=== PATIENT | female | born 1940 | race Caucasian/White ===

== ENCOUNTER 2019-07-25 12:55 | Inpatient (IN) | payer MEDICARE ==
[2019-07-25 15:30] LABS: ABSOLUTE EOSINOPHILS # (AUTO) 0.1 10^3/uL (0.0-0.6); ABSOLUTE LYMPHOCYTES (AUTO) 0.9 10^3/uL (0.5-4.7); ABSOLUTE MONOCYTES (AUTO) 0.9 10^3/uL (0.1-1.4); BASOPHILS % (AUTO) 0.4 % (0-2); EOSINOPHILS % (AUTO) 1.2 % (0-6); HEMATOCRIT 41.3 % (36.0-47.0); HEMOGLOBIN 14.8 g/dL (12.0-15.5); LYMPHOCYTES % (AUTO) 9.9 % (13-45); MEAN CORPUSCULAR HEMOGLOBIN 31.3 pg (27.0-33.4); MEAN CORPUSCULAR HGB CONC 35.8 g/dL (32.0-36.0); MEAN CORPUSCULAR VOLUME 87 fl (80-97); MONOCYTES % (AUTO) 10.2 % (3-13); PLATELET COUNT 279 10^3/uL (150-450); RED BLOOD COUNT 4.73 10^6/uL (3.72-5.28); RED CELL DISTRIBUTION WIDTH 13.9 % (11.5-14.0); SEGMENTED NEUTROPHILS % (AUTO) 78.3 % (42-78); TOTAL CELLS COUNTED % (AUTO) 100 %
[2019-07-25 15:40] LABS: ALBUMIN 4.4 g/dL (3.5-5.0); ALKALINE PHOSPHATASE 87 U/L (38-126); ANION GAP 12 (5-19); ASPARTATE AMINO TRANSFERASE 32 U/L (14-36); BILIRUBIN,DIRECT 0.3 mg/dL (0.0-0.4); BILIRUBIN,TOTAL 0.8 mg/dL (0.2-1.3); BLOOD UREA NITROGEN 12 mg/dL (7-20); CALCIUM 10.2 mg/dL (8.4-10.2); CARBON DIOXIDE 28 mmol/L (22-30); CHLORIDE 87 mmol/L (98-107); GLUCOSE 108 mg/dL (75-110); POTASSIUM 4.2 mmol/L (3.6-5.0); TOTAL PROTEIN 7.8 g/dL (6.3-8.2)
[2019-07-25 15:44] LABS: APPEARANCE,URINE CLEAR; BILIRUBIN,URINE NEGATIVE (NEGATIVE); COLOR,URINE YELLOW; GLUCOSE, URINE NEGATIVE (NEGATIVE); KETONES,URINE NEGATIVE (NEGATIVE); LEUKOCYTE ESTERASE,URINE NEGATIVE (NEGATIVE); NITRITE,URINE NEGATIVE (NEGATIVE); PROTEIN,URINE NEGATIVE (NEGATIVE); URINE SPECIFIC GRAVITY 1.006; UROBILINOGEN,URINE NEGATIVE mg/dL (<2.0)
--- NOTE | 2019-07-25 17:30 | RADIOLOGY REPORT (SQ) ---
EXAM DESCRIPTION: CT HEAD WITHOUT COMPLETED DATE/TIME: 07/25/2019 4:58 pm REASON FOR STUDY: headache, blurry vision COMPARISON: 2008. TECHNIQUE: Axial images acquired through the brain without intravenous contrast. Images reviewed wi th bone, brain and subdural windows. Additional sagittal and coronal reconstructions were generated. Images stored on PACS. All CT scanners at this facility use dose modulation, iterative reconstruction, and/or weight based d osing when appropriate to reduce radiation dose to as low as reasonably achievable (ALARA). [facility]: Dose Right [facility]: CareDose [facility]: Dose Right [facility]: Teradose 4D [facility]: Smart Technologies RADIATION DOSE: CT Rad equipment meets quality standard of care and radiation dose reduction techniq ues were employed. CTDIvol: 23.9 mGy. DLP: 457 mGy-cm. mGy. LIMITATIONS: Dense artifact related to hyperostosis frontalis. FINDINGS: VENTRICLES: Cavum septum pellucidum. Mild ventricular prominence consistent with atrophy. No intraventricular hemorrhage or gross mass. CEREBRUM: No masses. No hemorrhage. No midline shift. No evidence for acute infarction. Mild small vessel changes are noted, patchy white matter low density areas which are most conspicuous along the left occipital region. CEREBELLUM: No masses. No hemorrhage. No alteration of density. No evidence for acute infarction. EXTRAAXIAL SPACES: No fluid collections. No masses. ORBITS AND GLOBE: No intra- or extraconal masses. Normal contour of globe without masses. CALVARIUM: No fracture. PARANASAL SINUSES: No fluid or mucosal thickening. SOFT TISSUES: No mass or hematoma. OTHER: No other significant finding. IMPRESSION: 1. Relatively chronic appearing changes as above. Since 2008, low density has developed in the left occipital region, likely related to prior infarct. If there is concern for acute CVA, MRI with diffu garrett-weighted imaging would be appropriate. EVIDENCE OF ACUTE STROKE: NO. COMMENT: Quality ID # [id number]: Final reports with documentation of one or more dose reduction techniques (e.g., Automated exposure control, adjustment of the mA and/or kV according to patient size, use of iterative reconstruction technique) TECHNICAL DOCUMENTATION: JOB ID: [id number] 2010 [facility]- All Rights Reserved Reading location - IP/workstation name: [email or web address]
[2019-07-25] MEDS ORDERED: ACETAMINOPHEN 325 MG TABLET PO ONE (17:32)
--- NOTE | 2019-07-25 17:39 | ER Document Report ---
ED General - General Chief Complaint: Blurred Vision Stated Complaint: HEADACHE/DIZZINESS Time Seen by Provider: 07/25/19 16:31 Mode of Arrival: Ambulatory Information source: Patient, Friend Notes: Patient is an 79-year-old female presenting to the emergency department chief complaint of nausea and vomiting x2 yesterday generalized weakness for several days and blurred vision for the past day or 2. Patient states overall it is been going on for about 3 weeks however is worse today. Patient reports having 2 falls over the past month and a half but never has been seen for them. Patient denies travel history. Patient denies any sick contacts or obvious bad food exposure. Patient does report loss of her 6 weeks ago. TRAVEL OUTSIDE OF THE [place] IN LAST 30 DAYS: No - HPI Onset: Other Onset/Duration: Gradual, Persistent, Worse Quality of pain: Achy Severity: Mild Pain Level: 1 Associated symptoms: Nausea, Vomiting, Slow to respond, Weakness Exacerbated by: Movement, Walking Relieved by: Denies Similar symptoms previously: Yes Recently seen / treated by doctor: Yes - Related Data Allergies/Adverse Reactions: No Known Allergies Allergy (Verified 07/25/19 13:32) Home Medications: Metropolol, synthroid Past Medical History - General Information source: Patient, Friend - Social History Smoking Status: Never Smoker Chew tobacco use (# tins/day): No Frequency of alcohol use: None Drug Abuse: None Lives with: Alone Family History: Reviewed & Not Pertinent Patient has suicidal ideation: No Patient has homicidal ideation: No - Past Medical History Cardiac Medical History: Reports: Hx Hypertension - ATENOLOL Denies: Hx Heart Attack Pulmonary Medical History: Denies: Hx Asthma Neurological Medical History: Denies: Hx Cerebrovascular Accident, Hx Seizures GI Medical History: Denies: Hx Hepatitis, Hx Hiatal Hernia, Hx Ulcer Infectious Medical History: Denies: Hx Hepatitis Past Surgical History: Reports: Hx Hysterectomy, Hx Mastectomy - DOUBLE. Denies: Hx Open Heart Surgery, Hx Pacemaker Review of Systems - Review of Systems Notes: REVIEW OF SYSTEMS: CONSTITUTIONAL : Per HPI EENT: Denies ear, throat, or mouth pain or symptoms. Denies nasal or sinus congestion. However does report blurred vision and mild headache CARDIOVASCULAR: Denies chest pain. RESPIRATORY: Denies cough, cold, or chest congestion. Denies shortness of breath, difficulty breathing, or wheezing. GASTROINTESTINAL: Denies abdominal pain. Denies nausea, vomiting, or diarrhea. Denies constipation. GENITOURINARY: Denies difficulty urinating, painful urination, burning, frequency, or blood in urine. MUSCULOSKELETAL: Denies neck or back pain or joint pain or swelling. But does report generalized weakness SKIN: Denies rash or skin lesions. HEMATOLOGIC : Denies easy bruising or bleeding. NEUROLOGICAL: Denies altered mental status or loss of consciousness. Denies headache. Denies weakness or paralysis or loss of use of either side. Denies problems with gait or speech. Denies sensory or motor loss. PSYCHIATRIC: Denies suicidal or homicidal ideations 10 Systems are negative unless otherwise specified above Physical Exam - Vital signs Vitals: Temp Pulse Resp BP Pulse Ox 97.8 F 81 17 151/70 H 98 07/25/19 13:33 07/25/19 13:33 07/25/19 13:33 07/25/19 13:33 07/25/19 13:33 - Notes Notes: PHYSICAL EXAMINATION: GENERAL: Well-appearing, well-nourished and in no acute distress. HEAD: Atraumatic, normocephalic. EYES: Pupils equal round and reactive to light, extraocular movements intact, sclera anicteric, conjunctiva are normal. ENT: nares patent, oropharynx clear without exudates. Dry mucous membranes. NECK: Normal range of motion, supple without lymphadenopathy, no appreciable JVD LUNGS: Lungs clear to auscultation bilaterally and equal. No wheezes rales or rhonchi. HEART: Regular rate and rhythm without murmurs ABDOMEN: Soft, nontender, normal bowel sounds. No guarding, no rebound. No masses appreciated. EXTREMITIES: Active full range of motion, no pitting or edema. No cyanosis. 2+ pulses x4 NEUROLOGICAL: Patient answers questions appropriately follows commands appropriately does report blurred vision. Patient does report a headache but otherwise Daria Coma Scale of 15 patient is alert and oriented x3 cranial nerves II to XII are otherwise intact. SKIN: Warm, Dry, and intact. Normal turgor, no rashes or lesions noted. Course - Re-evaluation Re-evalutation: 07/25/19 17:42 After review of the patient's laboratory and radiologic studies has become aware that the patient is hyponatremic which may be explaining many of the patient's symptoms. I did discuss with the patient the need for admission because of her hyponatremia. Patient is agreeable with same. Patient is given a gram of Tylenol p.o. for her headache. Portable chest x-ray and EKG will be obtained as part of the admission process. I spoke with the hospitalist who is agreeable with admission. - Vital Signs Vital signs: Temp Pulse Resp BP Pulse Ox 97.8 F 78 21 H 170/83 H 100 07/25/19 13:33 07/25/19 16:00 07/25/19 17:00 07/25/19 16:31 07/25/19 16:00 - Laboratory Result Diagrams: 07/25/19 13:30 07/25/19 13:30 Laboratory results interpreted by me: 07/25/19 07/25/19 07/25/19 13:30 13:30 14:15 Lymph % (Auto) 9.9 L Seg Neutrophils % 78.3 H Sodium 126.5 L Chloride 87 L Urine Ascorbic Acid 20 H - Diagnostic Test Radiology reviewed: Reports reviewed - EKG Interpretation by Me Additional EKG results interpreted by me: 07/25/19 20:12 EKG demonstrates sinus rhythm 59 bpm there is borderline LVH there is a left a xis deviation however there is no ST elevation no ectopy and there is no old EKG for comparison. Discharge - Discharge Clinical Impression: Hyponatremia, Hypokalemia, Dizziness, Blurred vision Condition: Stable Disposition: ADMITTED OBSERVATION Admitting Provider: Albino (Hospitalist) Unit Admitted: Telemetry
--- NOTE | 2019-07-25 18:19 | RADIOLOGY REPORT (SQ) ---
EXAM DESCRIPTION: CHEST SINGLE VIEW COMPLETED DATE/TIME: 07/25/2019 5:56 pm REASON FOR STUDY: weak COMPARISON: 2008. NUMBER OF VIEWS: One view. TECHNIQUE: Single frontal radiographic view of the chest acquired. LIMITATIONS: None. FINDINGS: LUNGS AND PLEURA: No opacities, masses or pneumothorax. No pleural effusion. MEDIASTINUM AND HILAR STRUCTURES: Stable contours. HEART AND VASCULAR STRUCTURES: Mild cardiomegaly. No overt congestive failure. BONES: Osteopenic. HARDWARE: None in the chest. OTHER: No other significant finding. IMPRESSION: No acute cardiopulmonary disease. TECHNICAL DOCUMENTATION: JOB ID: [id number] 2010 [employer]- All Rights Reserved Reading location - IP/workstation name: [email or web address]
[2019-07-25] MEDS ORDERED: ACETAMINOPHEN 325 MG TABLET PO PRN (19:59)
[2019-07-25] MEDS ORDERED: MAG HYDROX/AL HYDROX/SIMETH SUSP 30 ML UDCUP PO PRN (19:59)
[2019-07-25] MEDS ORDERED: ONDANSETRON 4 MG TAB.RAPDIS PO PRN (19:59)
[2019-07-25] MEDS ORDERED: NORMAL SALINE 1000 ML 1,000 ML IV PRN (19:59)
[2019-07-25] MEDS ORDERED: MAGNESIUM HYDROXIDE SUSP 30 ML UDCUP PO PRN (19:59)
--- NOTE | 2019-07-25 19:59 | PDOC H&P ---
History of Present Illness Admission Date/PCP: 07/25/19 17:54 Patient complains of: Multiple falls, dizzy, blurred vision and hyponatremic History of Present Illness: AMBROCIO AMBROSE is a 79 year old female whose approximately 2 months ago. She states that she experienced a fall approximately 6 weeks ago. She hit the toilet. Her left ribs were sore. She states that her vision gets blurry since that fall. She was able to crawl back to bed. They did see her at [facility] and performed x-rays but according to the patient there were no fractures. Approximately 2 weeks after that she fell again. She denies hitting her head. Today she [facility] where she developed blurry vision and nearly passed out. EMS was called. They brought her to the emergency department. Her head CT scan showed microvascular changes but no acute stroke. She does have a history of several strokes in the past. Her blood pressure was elevated. Maximum systolic pressure was 165. Diastolic pressures were normal. Her CBC was normal. Her serum sodium was 126. She was referred to the hospitalist service for admission. Past Medical History Cardiac Medical History: Reports: Hypertension - ATENOLOL Denies: Myocardial Infarction Pulmonary Medical History: Denies: Asthma EENT Medical History: Reports: Cataracts, Eyes - Glaucoma Neurological Medical History: Denies: Seizures Endocrine Medical History: Reports: Hypothyroidism Denies: Diabetes Mellitus Type 2 Renal/ Medical History: Denies: Chronic Kidney Disease Malignancy Medical History: Reports: Breast Cancer GI Medical History: Denies: Hepatitis, Hiatal Hernia Skin Medical History: Denies: Eczema, Psoriasis Psychiatric Medical History: Denies: Alcohol Dependency, Substance Abuse, Tobacco Dependency Hematology: Denies: Anemia, Sickle Cell Disease Infectious Medical History: Reports: None Past Surgical History Past Surgical History: Reports: Herniorrhaphy - Incisional hernia at the site of the tissue harvest for the breast reconstr, Hysterectomy, Mastectomy - DOUBLE with subsequent breast reconstruction, Other - Cataracts Denies: Pacemaker Social History Information Source: Patient, [facility] Records Lives with: Alone - She is a Smoking Status: Never Smoker Electronic Cigarette use?: No Frequency of Alcohol Use: None Hx Recreational Drug Use: No Hx Prescription Drug Abuse: No Past Social History Note: approximately 2 months ago - Advance Directive Resuscitation Status: Do Not Resuscitate Surrogate healthcare decision maker:: When discussed she states that she has no family locally. I believe she reports a sister in [place] and a stepdaughter in [place]. She does not have a living will. Family History Family History: Malignancy Parental Family History Reviewed: Yes Children Family History Reviewed: NA Sibling(s) Family History Reviewed.: Yes Medication/Allergy Home Medications: Omeprazole 20 mg PO DAILY 10/05/12 Aspirin [Ecotrin 81 mg EC Tablet] 81 mg PO DAILY 07/25/19 Carboxymethylcellulose Sodium [Refresh Tears] 1 drop OU Q4 07/25/19 Levothyroxine Sodium [Synthroid 0.112 mg Tablet] 0.112 mg PO Q6AM 07/25/19 Metoprolol Succinate [Toprol Xl 50 mg Tab.sr] 50 mg PO DAILY 07/25/19 Triamterene/Hydrochlorothiazid [Triamterene-Hctz 37.5-25 mg Tb] 1 tab PO DAILY 07/25/19 Allergies/Adverse Reactions: No Known Allergies Allergy (Verified 07/25/19 13:32) Review of Systems All systems: reviewed and no additional remarkable complaints except as stated Constitutional: PRESENT: anorexia, fatigue, headache(s) Eyes: PRESENT: visual disturbances - Intermittent blurry vision Nose, Mouth, and Throat: PRESENT: headache(s) Neurological: PRESENT: abnormal speech - Slightly dysarthric today. Could be just fatigue., frequent falls Psychiatric: PRESENT: depression, other - Still with slight residual right-sided weakness from previous strokes Physical Exam Vital Signs: Temp Pulse Resp BP Pulse Ox 97.8 F 78 21 H 170/83 H 100 07/25/19 13:33 07/25/19 16:00 07/25/19 17:00 07/25/19 16:31 07/25/19 16:00 Intake & Output 07/24/19 07/25/19 07/26/19 06:59 06:59 06:59 Weight 84.2 kg General appearance: PRESENT: no acute distress, cooperative, well-developed Head exam: PRESENT: atraumatic, normocephalic Eye exam: PRESENT: conjunctiva pink, EOMI, PERRLA. ABSENT: scleral icterus Ear exam: PRESENT: normal external ear exam. ABSENT: bleeding, drainage Mouth exam: PRESENT: moist, tongue midline Neck exam: ABSENT: carotid bruit, JVD, lymphadenopathy, tracheal deviation, tracheostomy Respiratory exam: PRESENT: clear to auscultation medina, symmetrical, unlabored. ABSENT: accessory muscle use, prolonged expiratory phas, rales, rhonchi, tachy pnea, wheezes Cardiovascular exam: PRESENT: RRR, +S1, +S2 GI/Abdominal exam: PRESENT: normal bowel sounds, soft. ABSENT: distended, guarding, mass, tenderness Rectal exam: PRESENT: deferred Gentrourinary exam: ABSENT: indwelling catheter Extremities exam: ABSENT: full ROM, pedal edema Musculoskeletal exam: PRESENT: ambulatory. ABSENT: deformity Neurological exam: PRESENT: alert, awake, oriented to person, oriented to place, oriented to time, oriented to situation, motor sensory deficit - She still has slight weakness in the right hand 4/5 versus the left at 5/5. The right leg also had slightly weaker plantar and dorsiflexion. She was able to lift both legs off the table but states that the right leg feels weaker.. ABSENT: reflexes normal - Unable to elicit patellar reflexes, CN II-XII grossly intact - The patient is able to distinguish the number of fingers held up but she reports that they are blurry. She also reports that I appear fuzzy to her as well. Her extraocular muscles are intact and her pupils do respond to light. Her speech was ever so slightly dysarthric but this certainly could be due to fatigue. Psychiatric exam: PRESENT: depressed, flat affect. ABSENT: agitated, anxious Focused psych exam: ABSENT: delusional, paranoid, restlessness Skin exam: PRESENT: dry, normal color, warm. ABSENT: rash Results Laboratory Results: 07/25/19 13:30 07/25/19 13:30 07/25/19 07/25/19 07/25/19 13:30 13:30 14:15 WBC 9.0 RBC 4.73 Hgb 14.8 Hct 41.3 MCV 87 MCH 31.3 MCHC 35.8 RDW 13.9 Plt Count 279 Seg Neutrophils % 78.3 H Sodium 126.5 L Potassium 4.2 Chloride 87 L Carbon Dioxide 28 Anion Gap 12 BUN 12 Creatinine 0.71 Est GFR ( Amer) > 60 Glucose 108 Calcium 10.2 Total Bilirubin 0.8 AST 32 Alkaline Phosphatase 87 Total Protein 7.8 Albumin 4.4 Urine Color YELLOW Urine Appearance CLEAR Urine pH 7.0 Ur Specific Sumner 1.006 Urine Protein NEGATIVE Urine Glucose (UA) NEGATIVE Urine Ketones NEGATIVE Urine Blood NEGATIVE Urine Nitrite NEGATIVE Ur Leukocyte Esterase NEGATIVE Urine WBC (Auto) 5 Impressions: Head CT 07/25/19 16:32 IMPRESSION: 1. Relatively chronic appearing changes as above. Since 2008, low density has developed in the left occipital region, likely related to prior infarct. If there is concern for acute CVA, MRI with diffusion-weighted imaging would be appropriate. EVIDENCE OF ACUTE STROKE: NO. Chest X-Ray 07/25/19 17:41 IMPRESSION: No acute cardiopulmonary disease. Assessment and Plan - Diagnosis (1) Hyponatremia Is this a current diagnosis for this admission?: Yes Plan: 07/25/2019 The patient serum sodium was 126.5. I have ordered urine and serum osmolality studies. She does report that her electrolytes were abnormal at her last doctor's visit. She states that he started her on salt pills and stopped her diuretic. She was to return to the clinic to recheck her electrolytes but this episode occurred first. 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 She does admit that her eating habits and fluid intake have been off since her . I told her that the serum sodium is low but I would not expect those symptoms with her current serum sodium level. To receive gentle normal saline. I will not use diuretics. We will recheck her laboratory studies tomorrow. (2) Blurred vision Is this a current diagnosis for this admission?: Yes Plan: 07/25/2019 It is difficult to accurately assess her vision without appropriate equipment. She does report a history of cataracts and glaucoma. She is on an artificial tears type drop but no other medications for glaucoma. She states that she was scheduled to see the hydroelectric machinery mechanic in several weeks. We are unable to test her intraocular pressures at this point. We will continue to monitor for any changes, good or bad, and her vision during her stay. (3) Hypertension Qualifiers: Hypertension type: essential hypertension Qualified Code(s): I10 - Essential (primary) hypertension Is this a current diagnosis for this admission?: Yes Plan: 07/25/2019 The patient was on metoprolol and triamterene/hydrochlorothiazide. She reports that the second medication has been held. Her blood pressure is definitely high. It is not emergently high. Elevation in blood pressure can certainly cause multiple central nervous system issues. It is possible that spikes in her blood pressure have caused episodes of blurry vision. It is unlikely that the recurrent imbalance issues are directly related but it is very difficult to know. I will monitor her blood pressures on the metoprolol. I will hold the triamterene with hydrochlorothiazide. If her pressures remain elevated I will add additional medication. She will be monitored on telemetry as well. (4) Imbalance Is this a current diagnosis for this admission?: Yes Plan: 07/25/2019 I did not ambulate the patient in the emergency department. I will ask physical therapy to evaluate the patient. We did discuss the fact that hyponatremia can affect balance. The CT scan also showed microvascular changes and the patient has had 2 strokes in the past. The falls could certainly be a combination of issues and it may be hard to separate. As we correct her pathology we will continue to reassess her gait and balance. She will be considered high fall risk during her hospitalization. (5) Headache Qualifiers: Headache type: unspecified Headache chronicity pattern: unspecified pattern Intractability: not intractable Qualified Code(s): R51 - Headache Is this a current diagnosis for this admission?: Yes Plan: 07/25/2019 The patient does state that she has a headache. It was difficult to assess whether her headache and blurry vision always happen together or not. Her blood pressure was elevated but not significantly so that I would expect a headache. Mild analgesia will be available for the patient as needed. We are going to obtain an MRI scan for more detailed information of the compilation of symptoms. (6) Glaucoma Qualifiers: Glaucoma type: unspecified Laterality: bilateral Qualified Code(s): H40.9 - Unspecified glaucoma Is this a current diagnosis for this admission?: Yes Plan: 07/25/2019 It is unclear how long ago the patient was diagnosed with glaucoma or the specifics of the diagnosis. As noted above she has not had her eyes checked recently but is scheduled soon. She is not on any medication specific to the t reatment of glaucoma. Glaucoma certainly can affect your vision. She will definitely need to see ophthalmology at the time of discharge. (7) Reactive depression Is this a current diagnosis for this admission?: Yes Plan: The patient clearly seems depressed. Her primary care provider suggested that many of her symptoms are related to depression. I told her that I did not believe all of her symptoms are direct result of her depression. She has been depressed since her . Unfortunately there is no family close by so her social support network is very poor. She does admit that she has not slept well and her appetite and activity levels have been altered. Depending on how she is tomorrow I may have psychiatry see her as an inpatient. I do not feel that there is an urgent need. I will recommend discussing depression with her primary care provider at discharge. (8) Hypothyroidism Qualifiers: Hypothyroidism type: unspecified Qualified Code(s): E03.9 - Hypothyroidism, unspecified Is this a current diagnosis for this admission?: Yes Plan: 07/25/2019 We will continue the patient's current dose of levothyroxine. (9) History of stroke Is this a current diagnosis for this admission?: Yes Plan: 07/25/2019 The patient reports a history of at least 2 strokes. She states that they affected her right side. She feels that she has regained at least 75% of function. It seems that her symptoms may increase when she is fatigued. As noted above we are going to ask physical therapy to assess the patient. She is on aspirin and antihypertensive medications. I do not believe that the current symptom complex is a stroke. (10) History of breast cancer Is this a current diagnosis for this admission?: Yes Plan: 07/25/2019 With her history of malignancy a metastatic lesion is always a consideration. There was no evidence of any lesion on CT scanning. As noted above I will be obtaining an MRI scan but a brain lesion is not very likely. - Time Time Spent with patient: 35 or more minutes Medications reviewed and adjusted accordingly: Yes Anticipated discharge: Home with Homehealth - Inpatient Certification Based on my medical assessment, after consideration of the patient's comorbidities, presenting symptoms, or acuity I expect that the services needed warrant INPATIENT care.: Yes I certify that my determination is in accordance with my understanding of Medicare's requirements for reasonable and necessary INPATIENT services [42 CFR 412.3e].: Yes Medical Necessity: Need Close Monitoring Due to Risk of Patient Decompensation, Need For Continuous Telemetry Monitoring, Risk of Complication if Not Cared For in Hospital Post Hospital Care: D/C Spa Attendant Documentation
--- NOTE | 2019-07-25 20:08 | EKG REPORT ---
SEVERITY:- ABNORMAL ECG - SINUS RHYTHM LEFT VENTRICULAR HYPERTROPHY : Confirmed by: Segun Lee MD 25-Jul-2019 20:07:14
[2019-07-25] MEDS ORDERED: (PENDING PHARMACY ID) (Carboxymethylcellulose Sodium [Refresh Tears] 1 DROP) OU SCH (22:00)
[2019-07-25] MEDS: CARBOXYMETHYLCELLULOSE SOD 0.5% 0.4 ML DROPERETTE OU SCH (23:12)
[2019-07-25] MEDS: HEPARIN SOD (PORCINE) 5,000 UNIT/ML 1 ML VIAL SUBCUT SCH (23:12)
[2019-07-26] MEDS: CARBOXYMETHYLCELLULOSE SOD 0.5% 0.4 ML DROPERETTE OU SCH ×6 (03:59→22:00)
[2019-07-26] MEDS: PANTOPRAZOLE SODIUM 20 MG TABLET.DR PO SCH (06:00)
[2019-07-26] MEDS: LEVOTHYROXINE SODIUM 0.112 MG TABLET PO SCH (06:00)
[2019-07-26] MEDS: HEPARIN SOD (PORCINE) 5,000 UNIT/ML 1 ML VIAL SUBCUT SCH ×3 (06:01→22:00)
[2019-07-26 06:56] LABS: ANION GAP 11 (5-19); BLOOD UREA NITROGEN 9 mg/dL (7-20); CALCIUM 9.5 mg/dL (8.4-10.2); CARBON DIOXIDE 23 mmol/L (22-30); CHLORIDE 94 mmol/L (98-107); GLUCOSE 101 mg/dL (75-110); POTASSIUM 4.1 mmol/L (3.6-5.0)
[2019-07-26] MEDS: DOCUSATE SODIUM 100 MG CAPSULE PO SCH ×2 (09:17→17:14)
[2019-07-26] MEDS: METOPROLOL SUCCINATE 50 MG TAB.SR.24H PO SCH (09:17)
[2019-07-26] MEDS: ASPIRIN 81 MG TABLET, ENT COATED PO SCH (09:17)
--- NOTE | 2019-07-26 12:37 | RADIOLOGY REPORT (SQ) ---
EXAM DESCRIPTION: MRI HEAD COMBO COMPLETED DATE/TIME: 07/26/2019 12:13 pm REASON FOR STUDY: New onset imbalance with blurry vision and headach COMPARISON: CT brain 07/25/2019, 08/08/2008 TECHNIQUE: Multiplanar imaging includes noncontrasted T1, T2, FLAIR, diffusion with ADC map and post gadolinium contrast T1 sequences. Additional thin section axial and coronal T2, and pre and postcontrast axial and coronal T1 weighted images through the orbits Images stored on PACS. CONTRAST TYPE AND DOSE: 10 mL Dotarem. RENAL FUNCTION: Not indicated. ACR Type II contrast agent associated with few, if any, unconfounded cases of NSF LIMITATIONS: None. FINDINGS: ANATOMY: No anomalies. Normal vascular flow voids. Pituitary fossa normal. CSF SPACES: Normal in size and contour. No hemorrhage. CEREBRUM: No MR evidence of acute large territory ischemic change, acute intracranial hemorrhage, mas s effect, or midline shift. There is moderate diffuse chronic small vessel ischemic change in the hemispheric white matter, most pronounced along the left temporal occipital region. Diffusion-weighted images are negative for acute ischemic change. POSTERIOR FOSSA: Multiple old nonhemorrhagic infarcts along the superior right and left cerebellar he mispheres. No acute hemorrhage. No edema, masses, or mass effect. Internal auditory canals, cerebello pontine angles, mastoids normal. No enhancing lesions. No abnormal enhancement post contrast. DIFFUSION IMAGING: Negative for acute or subacute infarction. ORBITS: Post cataract surgery bilaterally. No gross globe hemorrhage. Normal optic nerves. No retr obulbar masses or enhancement. Normal intra and extraconal fat, extraocular muscles, lacrimal appara tus. No abnormal masses or enhancement along the optic pathways. PARANASAL SINUSES: No fluid levels. Mucosa normal. OTHER: No other significant finding. IMPRESSION: No MR evidence of acute ischemic change Moderate small vessel ischemic change in the hemispheric white matter. 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 Post cataract surgery. Globes and orbits otherwise unremarkable. EVIDENCE OF ACUTE STROKE: NO. TECHNICAL DOCUMENTATION: JOB ID: [id number] 2010 [email or web address]- All Rights Reserved Reading location - IP/workstation name: [email or web address]
[2019-07-26 13:12] LABS: URINE SODIUM 49 mmol/L (30-90)
[2019-07-26 13:15] LABS: OSMOLALITY,URINE 336 mOsm/kg (300-900)
--- NOTE | 2019-07-26 13:51 | PDOC PROGRESS REPORT ---
Subjective Progress Note for:: 07/26/19 Subjective:: The patient reports that her blurry vision is really only episodic. Physical therapy reported that her gait was acceptable with a walker and suggested home health. She does report feeling better than yesterday. Her blood pressure is still high. The MRI was unremarkable. Reason For Visit: HYPONATREMIA, BLURRY VISION, FALLS Physical Exam Vital Signs: Temp Pulse Resp BP Pulse Ox 97.6 F 58 L 17 140/52 H 97 07/26/19 10:42 07/26/19 10:42 07/26/19 10:42 07/26/19 10:42 07/26/19 10:42 Intake & Output 07/25/19 07/26/19 07/27/19 06:59 06:59 06:59 Output Total 350 Balance -350 Weight 79.8 kg General appearance: PRESENT: no acute distress, cooperative, well-developed Head exam: PRESENT: atraumatic, normocephalic Eye exam: PRESENT: conjunctiva pink. ABSENT: scleral icterus Ear exam: PRESENT: normal external ear exam. ABSENT: bleeding, drainage Mouth exam: PRESENT: moist, tongue midline Neck exam: PRESENT: full ROM. ABSENT: carotid bruit, JVD, lymphadenopathy, tracheal deviation Respiratory exam: PRESENT: clear to auscultation medina, symmetrical, unlabored. ABSENT: rales, rhonchi, tachypnea, wheezes Cardiovascular exam: PRESENT: diastolic murmur, RRR, +S1, +S2, systolic murmur GI/Abdominal exam: PRESENT: normal bowel sounds, soft. ABSENT: distended, guarding, mass, tenderness Rectal exam: PRESENT: deferred Gentrourinary exam: ABSENT: indwelling catheter Extremities exam: PRESENT: pedal edema Musculoskeletal exam: PRESENT: ambulatory, normal inspection. ABSENT: deformity Neurological exam: PRESENT: alert, awake, oriented to person, oriented to place, oriented to time, oriented to situation, CN II-XII grossly intact. ABSENT: altered Psychiatric exam: PRESENT: depressed - But she appears in slightly better spirits today., flat affect. ABSENT: agitated, anxious Focused psych exam: ABSENT: delusional, restlessness Skin exam: PRESENT: dry, normal color, warm. ABSENT: rash Results Laboratory Results: 07/25/19 13:30 07/26/19 05:42 07/25/19 07/25/19 07/25/19 13:30 13:30 14:15 WBC 9.0 RBC 4.73 Hgb 14.8 Hct 41.3 MCV 87 MCH 31.3 MCHC 35.8 RDW 13.9 Plt Count 279 Seg Neutrophils % 78.3 H Sodium 126.5 L Potassium 4.2 Chloride 87 L Carbon Dioxide 28 Anion Gap 12 BUN 12 Creatinine 0.71 Est GFR ( Amer) > 60 Glucose 108 Serum Osmolality Calcium 10.2 Magnesium Total Bilirubin 0.8 AST 32 Alkaline Phosphatase 87 Total Protein 7.8 Albumin 4.4 Urine Color YELLOW Urine Appearance CLEAR Urine pH 7.0 Ur Specific [place] 1.006 Urine Protein NEGATIVE Urine Glucose (UA) NEGATIVE Urine Ketones NEGATIVE Urine Blood NEGATIVE Urine Nitrite NEGATIVE Ur Leukocyte Esterase NEGATIVE Urine WBC (Auto) 5 Urine Osmolality 07/26/19 07/26/19 07/26/19 05:42 05:42 12:30 WBC RBC Hgb Hct MCV MCH MCHC RDW Plt Count Seg Neutrophils % Sodium 127.8 L Potassium 4.1 Chloride 94 L Carbon Dioxide 23 Anion Gap 11 BUN 9 Creatinine 0.53 Est GFR ( Amer) > 60 Glucose 101 Serum Osmolality 261 L Calcium 9.5 Magnesium 2.0 Total Bilirubin AST Alkaline Phosphatase Total Protein Albumin Urine Color Urine Appearance Urine pH Ur Specific [place] Urine Protein Urine Glucose (UA) Urine Ketones Urine Blood Urine Nitrite Ur Leukocyte Esterase Urine WBC (Auto) Urine Osmolality 336 Impressions: Head CT 07/25/19 16:32 IMPRESSION: 1. Relatively chronic appearing changes as above. Since 2008, low density has developed in the left occipital region, likely related to prior infarct. If there is concern for acute CVA, MRI with diffusion-weighted imaging would be appropriate. EVIDENCE OF ACUTE STROKE: NO. Chest X-Ray 07/25/19 17:41 IMPRESSION: No acute cardiopulmonary disease. Head MRI 07/26/19 08:00 IMPRESSION: No MR evidence of acute ischemic change Moderate small vessel ischemic change in the hemispheric white matter. 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 Post cataract surgery. Globes and orbits otherwise unremarkable. EVIDENCE OF ACUTE STROKE: NO. Assessment and Plan - Diagnosis (1) Hyponatremia Is this a current diagnosis for this admission?: Yes Plan: 07/25/2019 The patient serum sodium was 126.5. I have ordered urine and serum osmolality studies. She does report that her electrolytes were abnormal at her last doctor's visit. She states that he started her on salt pills and stopped her diuretic. She was to return to the clinic to recheck her electrolytes but this episode occurred first. 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 She does admit that her eating habits and fluid intake have been off since her . I told her that the serum sodium is low but I would not expect those symptoms with her current serum sodium level. To receive gentle normal saline. I will not use diuretics. We will recheck her laboratory studies tomorrow. 07/26/2019 The patient serum sodium is just above 127. Not a significant improvement. I am going to stop any fluids and start a 1.2 L fluid restriction and continue to monitor her serum sodium. Serum osmolality was slightly low. Urine osmolality was normal. 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 (2) Headache Qualifiers: Headache type: unspecified Headache chronicity pattern: unspecified pattern Intractability: not intractable Qualified Code(s): R51 - Headache Is this a current diagnosis for this admission?: Yes Plan: 07/25/2019 The patient does state that she has a headache. It was difficult to assess whether her headache and blurry vision always happen together or not. Her blood pressure was elevated but not significantly so that I would expect a headache. Mild analgesia will be available for the patient as needed. We are going to obtain an MRI scan for more detailed information of the compilation of symptoms. 07/26/2019 She reports that her headache is gone today. I explained that this could be related to improvement in her blood pressure. She also then reported that the blurry vision is certainly less but occasional. 2 episodes today. The headache was most likely due to elevated blood pressure. Certainly there could be an emotional component to this as well. Continue supportive care and mild analgesia. The MRI did not show any new lesions or masses. There is evidence of her old strokes. (3) Blurred vision Is this a current diagnosis for this admission?: Yes Plan: 07/25/2019 It is difficult to accurately assess her vision without appropriate equipment. She does report a history of cataracts and glaucoma. She is on an artificial tears type drop but no other medications for glaucoma. She states that she was scheduled to see the paint process engineer in several weeks. We are unable to test her intraocular pressures at this point. We will continue to monitor for any changes, good or bad, and her vision during her stay. 07/26/2019 As noted above she reports that there is definite improvement in the blurry vision. Her vision is clear at this moment. She had 2 episodes and as noted above I believe it could be related to blood pressure changes. It is unlikely that a sodium of 126 would cause that level of alteration. (4) History of stroke Is this a current diagnosis for this admission?: Yes Plan: 07/25/2019 The patient reports a history of at least 2 strokes. She states that they affected her right side. She feels that she has regained at least 75% of function. It seems that her symptoms may increase when she is fatigued. As noted above we are going to ask physical therapy to assess the patient. She is on aspirin and antihypertensive medications. I do not believe that the current symptom complex is a stroke. 07/26/2019 There is no evidence of new stroke. Physical therapy did see the patient. They felt that she would benefit from a walker for stability. Part of this could be related to old stroke. (5) Imbalance Is this a current diagnosis for this admission?: Yes Plan: 07/25/2019 I did not ambulate the patient in the emergency department. I will ask physical therapy to evaluate the patient. We did discuss the fact that hyponatremia can affect balance. The CT scan also showed microvascular changes and the patient has had 2 strokes in the past. The falls could certainly be a combination of issues and it may be hard to separate. As we correct her pathology we will continue to reassess her gait and balance. She will be considered high fall risk during her hospitalization. 07/26/2019 Physical therapy has seen the patient. They feel that with a walker she is stable enough and can continue therapy at home. Will order home health with physical therapy. (6) Hypertension Qualifiers: Hypertension type: essential hypertension Qualified Code(s): I10 - Essential (primary) hypertension Is this a current diagnosis for this admission?: Yes Plan: 07/25/2019 The patient was on metoprolol and triamterene/hydrochlorothiazide. She reports that the second medication has been held. Her blood pressure is definitely high. It is not emergently high. Elevation in blood pressure can certainly cause multiple central nervous system issues. It is possible that spikes in her blood pressure have caused episodes of blurry vision. It is unlikely that the recurrent imbalance issues are directly related but it is very difficult to know. I will monitor her blood pressures on the metoprolol. I will hold the triamterene with hydrochlorothiazide. If her pressures remain elevated I will add additional medication. She will be monitored on telemetry as well. 07/26/2019 The triamterene with hydrochlorothiazide is being held for the hyponatremia. I have added losartan because the poorly controlled hypertension could certainly be contributing to some of her symptoms. Eventually she may benefit from losartan with hydrochlorothiazide to complement the metoprolol. Continue the losartan and metoprolol and continue to monitor blood pressure with vital signs and continue telemetry monitoring. Blood pressure will likely improve slowly over the next week or 2. Can reassess the triamterene hydrochlorothiazide once the serum sodium normalizes. - Time Time Spent with patient: 15-24 minutes Medications reviewed and adjusted accordingly: Yes Anticipated discharge: Home with Homehealth Within: within 24 hours
[2019-07-26] MEDS: LOSARTAN POTASSIUM 50 MG TABLET PO SCH (22:00)
[2019-07-27] MEDS: CARBOXYMETHYLCELLULOSE SOD 0.5% 0.4 ML DROPERETTE OU SCH ×6 (03:14→23:53)
[2019-07-27 06:38] LABS: ANION GAP 7 (5-19); BLOOD UREA NITROGEN 9 mg/dL (7-20); CALCIUM 9.4 mg/dL (8.4-10.2); CARBON DIOXIDE 25 mmol/L (22-30); CHLORIDE 95 mmol/L (98-107); GLUCOSE 105 mg/dL (75-110); POTASSIUM 4.1 mmol/L (3.6-5.0)
[2019-07-27] MEDS: LEVOTHYROXINE SODIUM 0.112 MG TABLET PO SCH (06:49)
[2019-07-27] MEDS: HEPARIN SOD (PORCINE) 5,000 UNIT/ML 1 ML VIAL SUBCUT SCH ×3 (07:24→22:42)
[2019-07-27] MEDS: PANTOPRAZOLE SODIUM 20 MG TABLET.DR PO SCH (07:25)
[2019-07-27] MEDS: DOCUSATE SODIUM 100 MG CAPSULE PO SCH ×2 (09:30→17:17)
[2019-07-27] MEDS: METOPROLOL SUCCINATE 50 MG TAB.SR.24H PO SCH (09:30)
[2019-07-27] MEDS: ASPIRIN 81 MG TABLET, ENT COATED PO SCH (09:30)
--- NOTE | 2019-07-27 16:17 | PDOC PROGRESS REPORT ---
Subjective Progress Note for:: 07/27/19 Subjective:: Patient did voice some suicidal ideation today stating that she also thought about killing herself including standing in front of a car. She denies any headaches dizziness or lightheadedness at this time. Reason For Visit: HYPONATREMIA, BLURRY VISION, FALLS Physical Exam Vital Signs: Temp Pulse Resp BP Pulse Ox 97.5 F 70 16 143/59 H 98 07/27/19 12:06 07/27/19 14:00 07/27/19 12:06 07/27/19 12:06 07/27/19 12:06 Intake & Output 07/26/19 07/27/19 07/28/19 06:59 06:59 06:59 Intake Total 1480 240 Output Total 350 Balance -350 1480 240 Weight 79.8 kg 80.7 kg General appearance: PRESENT: no acute distress, cooperative Neck exam: ABSENT: JVD Respiratory exam: PRESENT: clear to auscultation [place], unlabored. ABSENT: tachypnea, wheezes Cardiovascular exam: PRESENT: RRR, +S1, +S2. ABSENT: tachycardia GI/Abdominal exam: PRESENT: normal bowel sounds, soft. ABSENT: rebound, rigid, tenderness Extremities exam: ABSENT: calf tenderness Neurological exam: PRESENT: alert, awake Psychiatric exam: ABSENT: agitated, anxious Focused psych exam: ABSENT: pressured speech Skin exam: ABSENT: jaundice Results Laboratory Results: 07/25/19 13:30 07/27/19 05:44 07/27/19 05:44 Sodium 127.0 L Potassium 4.1 Chloride 95 L Carbon Dioxide 25 Anion Gap 7 BUN 9 Creatinine 0.60 Est GFR ( Amer) > 60 Glucose 105 Calcium 9.4 Impressions: Head CT 07/25/19 16:32 IMPRESSION: 1. Relatively chronic appearing changes as above. Since 2008, low density has developed in the left occipital region, likely related to prior infarct. If there is concern for acute CVA, MRI with diffusion-weighted imaging would be appropriate. EVIDENCE OF ACUTE STROKE: NO. Chest X-Ray 07/25/19 17:41 IMPRESSION: No acute cardiopulmonary disease. Head MRI 07/26/19 08:00 IMPRESSION: No MR evidence of acute ischemic change Moderate small vessel ischemic change in the hemispheric white matter. 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 Post cataract surgery. Globes and orbits otherwise unremarkable. EVIDENCE OF ACUTE STROKE: NO. Assessment and Plan - Diagnosis (1) Hyponatremia Is this a current diagnosis for this admission?: Yes Plan: Patient's hypotonic hyponatremia picture does fit SIADH given her urine sodium over 40 and urine osmolarity in the 300s and negative osmolar gap. However no significant improvement in sodium level despite adequate fluid restriction. I will start on sodium chloride tablets 1 g every 8 hours and check BMP in the morning. We will also check TSH given history of hypothyroidism and a.m. cortisol. (2) Blurred vision Is this a current diagnosis for this admission?: Yes Plan: Outpatient follow-up with ophthalmology. No acute ischemic changes on MRI. (3) Hypertension Qualifiers: Hypertension type: essential hypertension Qualified Code(s): I10 - Essential (primary) hypertension Is this a current diagnosis for this admission?: Yes Plan: Triamterene and hydrochlorothiazide have been held since admission due to hyponatremia. Losartan was added. Continue patient's metoprolol. (4) Imbalance Is this a current diagnosis for this admission?: Yes Plan: Brain MRI negative for acute ischemic changes but does show multiple chronic infarcts in her cerebellum suggesting prior strokes which may account for imbalance. Physical therapy was consulted. (5) Depression Qualifiers: Depression Type: unspecified Qualified Code(s): F32.9 - Major depressive disorder, single episode, unspecified Is this a current diagnosis for this admission?: Yes Plan: Patient voiced suicidal ideation today. It is unlikely to have neuropsychiatric disturbances with serum sodium of 127. I have consulted psychiatry. Would refrain from starting any antidepressant that worsen SIADH. - Time Time Spent with patient: 15-24 minutes
--- NOTE | 2019-07-27 16:53 | PSYCHOLOGICAL NOTE ---
Psych Note - Psych Note Date seen by psych provider: 07/27/19 Time seen by psych provider: 14:20 - Clincian received verbal request Psych Note: Reason For Consult:Suicidal ideation, grief Patient reports that she has had thoughts of dying previously however denies cur rent. She reports that her thoughts were passive in nature and started after her in May. She states she does not want to but has been struggling with grief. She identifies that last week she found out that the water table under her house has raised and was told she has to move out of her home. She states she has been talking with other taoist members and the [employer]ist [employer]; they have said they will help her get into assisted living. She feels that this is an appropriate move; "it is time I think I am ready to go there." She reports that her stepdaughter is her other support and was here earlier visiting. Patient is alert and orientated to person, place, time and circumstance. Mood is euthymic with congruent affect. Patient denies suicidal and homicidal ideation. Delusions are absent and behaviors congruent with an intact reality based presentation I organized and linear thought process. Eye contact is well- maintained. Conversational speech is within normal rate, tone and prosody. Intellectual abilities appear to be within the average range. Attention and concentration are good. Insight, judgment, impulse control are fair. Medication recommendations per [facility]'s contracted psychiatrist Dr. Evan BENÍTEZ are as follows Depakote 250mg twice daily Impression\\plan: Patient is cleared from acute psychiatric services. Patient continues to struggle with grief after losing her back in May. Last week patient found out her house has significant damage due to a rising water table. She confirms passive suicidal ideation previously however adamantly denies wanting to . She demonstrates forward thinking discussing talking with her taoist members about going into assisted living. She identifies both taoist and her stepdaughter as support network. Clinician provided psychoeducation on grief process. Medication recommendations have been provided. Dr. Quiroz was consulted to care management of this patient; attending physicians in agreement with recommendations and disposition.
[2019-07-27] MEDS: SODIUM CHLORIDE 1 GM TABLET PO SCH ×2 (17:17→22:48)
[2019-07-27] MEDS: LOSARTAN POTASSIUM 50 MG TABLET PO SCH (22:48)
[2019-07-28] MEDS: CARBOXYMETHYLCELLULOSE SOD 0.5% 0.4 ML DROPERETTE OU SCH ×6 (01:08→22:23)
[2019-07-28] MEDS: PANTOPRAZOLE SODIUM 20 MG TABLET.DR PO SCH ×2 (05:01→08:07)
[2019-07-28] MEDS: HEPARIN SOD (PORCINE) 5,000 UNIT/ML 1 ML VIAL SUBCUT SCH ×3 (05:01→22:23)
[2019-07-28 06:29] LABS: ANION GAP 8 (5-19); BLOOD UREA NITROGEN 16 mg/dL (7-20); CALCIUM 9.3 mg/dL (8.4-10.2); CARBON DIOXIDE 23 mmol/L (22-30); CHLORIDE 97 mmol/L (98-107); GLUCOSE 93 mg/dL (75-110)
[2019-07-28] MEDS: LEVOTHYROXINE SODIUM 0.112 MG TABLET PO SCH (08:06)
[2019-07-28] MEDS: SODIUM CHLORIDE 1 GM TABLET PO SCH ×3 (08:06→22:22)
[2019-07-28] MEDS: ASPIRIN 81 MG TABLET, ENT COATED PO SCH (09:43)
[2019-07-28] MEDS: DOCUSATE SODIUM 100 MG CAPSULE PO SCH ×2 (09:43→18:33)
[2019-07-28] MEDS: METOPROLOL SUCCINATE 50 MG TAB.SR.24H PO SCH (09:44)
[2019-07-28] MEDS ORDERED: CARBOXYMETHYLCELLULOSE SOD 0.5% 0.4 ML DROPERETTE OU SCH (14:00)
--- NOTE | 2019-07-28 18:39 | PDOC PROGRESS REPORT ---
Subjective Progress Note for:: 07/28/19 Subjective:: No adverse events overnight. Patient wanted to go home today but her sodium was not much improved over yesterday. Since her she has not been cooking very much and so she is not been eating very well. She is worried about being home by herself and said her mormonism has been trying to get her into an assisted living. Reason For Visit: HYPONATREMIA, BLURRY VISION, FALLS Physical Exam Vital Signs: Temp Pulse Resp BP Pulse Ox 98.1 F 63 16 150/58 H 99 07/28/19 16:00 07/28/19 16:00 07/28/19 16:00 07/28/19 16:00 07/28/19 16:00 Intake & Output 07/27/19 07/28/19 07/29/19 06:59 06:59 07:59 Intake Total 1480 1040 260 Balance 1480 1040 260 Weight 80.7 kg 78.4 kg General appearance: PRESENT: no acute distress, cooperative Neck exam: ABSENT: JVD Respiratory exam: PRESENT: clear to auscultation [place], unlabored. ABSENT: tachypnea, wheezes Cardiovascular exam: PRESENT: RRR, +S1, +S2. ABSENT: tachycardia GI/Abdominal exam: PRESENT: normal bowel sounds, soft. ABSENT: rebound, rigid, tenderness Extremities exam: ABSENT: calf tenderness Neurological exam: PRESENT: alert, awake Psychiatric exam: ABSENT: agitated, anxious Focused psych exam: ABSENT: pressured speech Skin exam: ABSENT: jaundice Results Laboratory Results: 07/25/19 13:30 07/28/19 05:07 07/28/19 07/28/19 05:07 05:07 Sodium 128.4 L Potassium 4.0 Chloride 97 L Carbon Dioxide 23 Anion Gap 8 BUN 16 Creatinine 0.65 Est GFR ( Amer) > 60 Glucose 93 Calcium 9.3 TSH 3.32 Impressions: Head CT 07/25/19 16:32 IMPRESSION: 1. Relatively chronic appearing changes as above. Since 2008, low density has developed in the left occipital region, likely related to prior infarct. If there is concern for acute CVA, MRI with diffusion-weighted imaging would be appropriate. EVIDENCE OF ACUTE STROKE: NO. Chest X-Ray 07/25/19 17:41 IMPRESSION: No acute cardiopulmonary disease. Head MRI 07/26/19 08:00 IMPRESSION: No MR evidence of acute ischemic change Moderate small vessel ischemic change in the hemispheric white matter. 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 Post cataract surgery. Globes and orbits otherwise unremarkable. EVIDENCE OF ACUTE STROKE: NO. Assessment and Plan - Diagnosis (1) Hyponatremia Is this a current diagnosis for this admission?: Yes Plan: I suspect that this was the cause of her symptoms. Her serum osmolality was low and her urine osmolality was low normal, and her urine sodium was 49, which is still within the normal range but towards the lower end. Her triamterene and HCTZ have been held. The triamterene should not have affected her sodium as much but her HCTZ could. Her other home medications are much less likely culprits. She was tried on a fluid restriction but this really did not do very much for her sodium levels. She has been started on some salt tablets. Sodium is improved a little bit from yesterday and so we will continue to monitor this. In the meantime, we will have case management look into what her options are for assisted living. - Time Time Spent with patient: 15-24 minutes
[2019-07-28] MEDS: LOSARTAN POTASSIUM 50 MG TABLET PO SCH (22:23)
[2019-07-29] MEDS: CARBOXYMETHYLCELLULOSE SOD 0.5% 0.4 ML DROPERETTE OU SCH ×4 (03:51→15:44)
[2019-07-29] MEDS: SODIUM CHLORIDE 1 GM TABLET PO SCH ×2 (05:17→14:18)
[2019-07-29] MEDS: PANTOPRAZOLE SODIUM 20 MG TABLET.DR PO SCH (05:17)
[2019-07-29] MEDS: LEVOTHYROXINE SODIUM 0.112 MG TABLET PO SCH (05:17)
[2019-07-29] MEDS: HEPARIN SOD (PORCINE) 5,000 UNIT/ML 1 ML VIAL SUBCUT SCH ×2 (05:19→15:48)
[2019-07-29] MEDS: DOCUSATE SODIUM 100 MG CAPSULE PO SCH (10:03)
[2019-07-29] MEDS: METOPROLOL SUCCINATE 50 MG TAB.SR.24H PO SCH (10:03)
[2019-07-29] MEDS: ASPIRIN 81 MG TABLET, ENT COATED PO SCH (10:03)
[2019-07-29 10:57] LABS: ANION GAP 9 (5-19); BLOOD UREA NITROGEN 13 mg/dL (7-20); CALCIUM 9.6 mg/dL (8.4-10.2); CARBON DIOXIDE 25 mmol/L (22-30); CHLORIDE 94 mmol/L (98-107); GLUCOSE 110 mg/dL (75-110); POTASSIUM 4.3 mmol/L (3.6-5.0)
--- NOTE | 2019-07-29 16:58 | PDOC DISCHARGE SUMMARY ---
Impression - Admit/DC Date/PCP Admission Date/Primary Care Provider: 07/25/19 20:00 Discharge Date: 07/29/19 - Discharge Diagnosis (1) Hyponatremia Is this a current diagnosis for this admission?: Yes - Additional Information Resuscitation Status: Do Not Resuscitate Discharge Diet: Cardiac Discharge Activity: Supervised Activity Referrals: [facility] [Outside] GRECIA PIERCE MD [NO LOCAL MD] - (1-2 weeks) Prescriptions: Losartan Potassium [Cozaar 50 mg Tablet] 50 mg PO QHS #30 tablet Sodium Chloride [Sodium Chloride 1 gm Tablet] 1 gm PO Q8 #90 tablet Home Medications: Omeprazole 20 mg PO DAILY 10/05/12 Aspirin [Ecotrin 81 mg EC Tablet] 81 mg PO DAILY 07/25/19 Carboxymethylcellulose Sodium [Refresh Tears] 1 drop OU Q4 07/25/19 Levothyroxine Sodium [Synthroid 0.112 mg Tablet] 0.112 mg PO Q6AM 07/25/19 Metoprolol Succinate [Toprol Xl 50 mg Tab.sr] 50 mg PO DAILY 07/25/19 Losartan Potassium [Cozaar 50 mg Tablet] 50 mg PO QHS #30 tablet 07/29/19 Sodium Chloride [Sodium Chloride 1 gm Tablet] 1 gm PO Q8 #90 tablet 07/29/19 History of Present Illiness History of Present Illness: AMBROCIO AMBROSE is a 79 year old female whose approximately 2 months ago. She states that she experienced a fall approximately 6 weeks ago. She hit the toilet. Her left ribs were sore. She states that her vision gets blurry since that fall. She was able to crawl back to bed. They did see her at [facility] and performed x-rays but according to the patient there were no fractures. Approximately 2 weeks after that she fell again. She denies hitting her head. Today she was at the [facility] where she developed blurry vision and nearly passed out. EMS was called. They brought her to the emergency department. Her head CT scan showed microvascular changes but no acute stroke. She does have a history of several strokes in the past. Her blood pressure was elevated. Maximum systolic pressure was 165. Diastolic pressures were normal. Her CBC was normal. Her serum sodium was 126. She was referred to the hospitalist service for admission. Hospital Course Hospital Course: I suspect that her sodium is actually at its baseline. She was given some IV fluids and her sodium did not respond. She was fluid restricted and her sodium did not respond. She has been on salt tablets for couple of days and her sodium has not responded. She is not on any medications that would adversely affect that absolutely, but she was switched off of triamterene and HCTZ and was put instead on losartan. This also has had no effect on her sodium. I suspect that when she first came in the initial problem is that she has had some depression since her recently, and she is not been eating and drinking as well as she should have. That is probably had her a lot weaker, and she is gotten better by is giving her some fluids and she has been eating well. We have given her a prescription for losartan and have recommended that she not resume her triamterene HCTZ at home. Also gave her a prescription for some sodium chloride tablets that she can take until she follows up for her repeat lab work to see if it has had any benefit. Her serum osmolality was low and her urine osmolality was at the low end of normal. This was suggest low solute overall, but it could be that she has a reset osmostat. We set her up for home health physical therapy and her stepdaughter will be going home with her for a few days. We gave her some choices in terms of options for assisted living. Her labs and examination were reassuring and she was discharged in stable condition. Physical Exam Vital Signs: Temp Pulse Resp BP Pulse Ox 98.6 F 59 L 16 158/73 H 96 07/29/19 15:48 07/29/19 15:48 07/29/19 15:48 07/29/19 15:48 07/29/19 15:48 Intake & Output 07/28/19 07/29/19 07/30/19 05:59 06:59 06:59 Intake Total 240 Balance 240 Weight General appearance: PRESENT: no acute distress, cooperative Neck exam: ABSENT: JVD Respiratory exam: PRESENT: clear to auscultation med[place], unlabored. ABSENT: tachypnea, wheezes Cardiovascular exam: PRESENT: RRR, +S1, +S2. ABSENT: tachycardia GI/Abdominal exam: PRESENT: normal bowel sounds, soft. ABSENT: rebound, rigid, tenderness Extremities exam: ABSENT: calf tenderness Neurological exam: PRESENT: alert, awake Psychiatric exam: ABSENT: agitated, anxious Focused psych exam: ABSENT: pressured speech Skin exam: ABSENT: jaundice Results Laboratory Results: WBC 9.0 10^3/uL (4.0-10.5) 07/25/19 13:30 RBC 4.73 10^6/uL (3.72-5.28) 07/25/19 13:30 Hgb 14.8 g/dL (12.0-15.5) 07/25/19 13:30 Hct 41.3 % (36.0-47.0) 07/25/19 13:30 MCV 87 fl (80-97) 07/25/19 13:30 MCH 31.3 pg (27.0-33.4) 07/25/19 13:30 MCHC 35.8 g/dL (32.0-36.0) 07/25/19 13:30 RDW 13.9 % (11.5-14.0) 07/25/19 13:30 Plt Count 279 10^3/uL (150-450) 07/25/19 13:30 Lymph % (Auto) 9.9 % (13-45) L 07/25/19 13:30 [place] % (Auto) 10.2 % (3-13) 07/25/19 13:30 Eos % (Auto) 1.2 % (0-6) 07/25/19 13:30 Baso % (Auto) 0.4 % (0-2) 07/25/19 13:30 Absolute Neuts (auto) 7.0 10^3/uL (1.7-8.2) 07/25/19 13:30 Absolute Lymphs (auto) 0.9 10^3/uL (0.5-4.7) 07/25/19 13:30 Absolute Monos (auto) 0.9 10^3/uL (0.1-1.4) 07/25/19 13:30 Absolute Eos (auto) 0.1 10^3/uL (0.0-0.6) 07/25/19 13:30 Absolute Basos (auto) 0.0 10^3/uL (0.0-0.2) 07/25/19 13:30 Seg Neutrophils % 78.3 % (42-78) H 07/25/19 13:30 Sodium 127.5 mmol/L (137-145) L 07/29/19 09:59 Potassium 4.3 mmol/L (3.6-5.0) 07/29/19 09:59 Chloride 94 mmol/L (98-107) L 07/29/19 09:59 Carbon Dioxide 25 mmol/L (22-30) 07/29/19 09:59 Anion Gap 9 (5-19) 07/29/19 09:59 BUN 13 mg/dL (7-20) 07/29/19 09:59 Creatinine 0.74 mg/dL (0.52-1.25) 07/29/19 09:59 Est GFR ( Amer) > 60 (>60) 07/29/19 09:59 Est GFR (MDRD) Non-Af > 60 (>60) 07/29/19 09:59 Glucose 110 mg/dL (75-110) 07/29/19 09:59 Serum Osmolality 261 mOsm/kg (275-301) L 07/26/19 05:42 Calcium 9.6 mg/dL (8.4-10.2) 07/29/19 09:59 Magnesium 2.0 mg/dL (1.6-2.3) 07/26/19 05:42 Total Bilirubin 0.8 mg/dL (0.2-1.3) 07/25/19 13:30 Direct Bilirubin 0.3 mg/dL (0.0-0.4) 07/25/19 13:30 Neonat Total Bilirubin Not Reportable 07/25/19 13:30 Neonat Direct Bilirubin Not Reportable 07/25/19 13:30 Neonat Indirect Bili Not Reportable 07/25/19 13:30 AST 32 U/L (14-36) 07/25/19 13:30 ALT 20 U/L (<35) 07/25/19 13:30 Alkaline Phosphatase 87 U/L (38-126) 07/25/19 13:30 Total Protein 7.8 g/dL (6.3-8.2) 07/25/19 13:30 Albumin 4.4 g/dL (3.5-5.0) 07/25/19 13:30 TSH 3.32 uIU/mL (0.47-4.68) 07/28/19 05:07 Cortisol AM Sample 8.68 ug/dL (4.46-22.7) 07/28/19 05:07 Urine Color YELLOW 07/25/19 14:15 Urine Appearance CLEAR 07/25/19 14:15 Urine pH 7.0 (5.0-9.0) 07/25/19 14:15 Ur Specific [place] 1.006 07/25/19 14:15 Urine Protein NEGATIVE mg/dL (NEGATIVE) 07/25/19 14:15 Urine Glucose (UA) NEGATIVE mg/dL (NEGATIVE) 07/25/19 14:15 Urine Ketones NEGATIVE mg/dL (NEGATIVE) 07/25/19 14:15 Urine Blood NEGATIVE (NEGATIVE) 07/25/19 14:15 Urine Nitrite NEGATIVE (NEGATIVE) 07/25/19 14:15 Urine Bilirubin NEGATIVE (NEGATIVE) 07/25/19 14:15 Urine Urobilinogen NEGATIVE mg/dL (<2.0) 07/25/19 14:15 Ur Leukocyte Esterase NEGATIVE (NEGATIVE) 07/25/19 14:15 Urine WBC (Auto) 5 /HPF 07/25/19 14:15 Urine Bacteria (Auto) TRACE /HPF 07/25/19 14:15 Squamous Epi Cells Auto 1 /HPF 07/25/19 14:15 Urine Mucus (Auto) RARE /LPF 07/25/19 14:15 Urine Osmolality 336 mOsm/kg (300-900) 07/26/19 12:30 Urine Sodium 49 mmol/L (30-90) 07/26/19 12:30 Urine Ascorbic Acid 20 (NEGATIVE) H 07/25/19 14:15 Impressions: Head CT 07/25/19 16:32 IMPRESSION: 1. Relatively chronic appearing changes as above. Since 2008, low density has developed in the left occipital region, likely related to prior infarct. If there is concern for acute CVA, MRI with diffusion-weighted imaging would be appropriate. EVIDENCE OF ACUTE STROKE: NO. Chest X-Ray 07/25/19 17:41 IMPRESSION: No acute cardiopulmonary disease. Head MRI 07/26/19 08:00 IMPRESSION: No MR evidence of acute ischemic change Moderate small vessel ischemic change in the hemispheric white matter. 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 Post cataract surgery. Globes and orbits otherwise unremarkable. EVIDENCE OF ACUTE STROKE: NO. Plan Time Spent: Greater than 30 Minutes Stroke Is this a Stroke Patient?: No Acute Heart Failure - Is this a Heart Failure Patient?: No
[2019-07-29 17:18] VITALS: BP 150/58
== END 2019-07-29 17:30 | disposition home health service (06) | DRG 641 ==
LOC: ER 12:55 → EH 17:54 → OBSVTOIN 20:00 → 5 21:13
PROVIDERS: ADMIT Hospitalist; ATTEND Hospitalist
DX: E87.1 Hypo-osmolality and hyponatremia (principal); I69.354 Hemiplegia and hemiparesis following cerebral infarction affecting left non-dominant side; R45.851 Suicidal ideations; Z91.81 History of falling; I10 Essential (primary) hypertension; E03.9 Hypothyroidism, unspecified; Z85.3 Personal history of malignant neoplasm of breast; H26.9 Unspecified cataract; Z79.899 Other long term (current) drug therapy; Z90.13 Acquired absence of bilateral breasts and nipples; Z66 Do not resuscitate; Z79.82 Long term (current) use of aspirin; F32.9 Major depressive disorder, single episode, unspecified; H40.9 Unspecified glaucoma; Z79.890 Hormone replacement therapy; H53.8 Other visual disturbances; R51 Headache
CPT/HCPCS: 36415; 70450; 70553; 71045; 80048; 80053; 81001; 82533; 83735; 83930; 83935; 84300; 84443; 85025; 93005; 93010; 99285; A9576; J1644; J3490; J7030

== ENCOUNTER 2019-09-28 09:12 | Emergency (ER) | payer MEDICARE ==
--- NOTE | 2019-09-28 09:30 | ER Document Report ---
ED Headache - General Chief Complaint: Headache Stated Complaint: HEADACHE Time Seen by Provider: 09/28/19 09:24 Information source: Patient Notes: 79-year-old female arrives with chief complaint of headache. Patient was just seen by Dr. Posada 24 July with history of hyponatremia blurry vision falls history of CVA hypertension glaucoma depression hypothyroidism and history of breast cancer. Patient arrives by EMS. Patient is very RESIGHINI. Patient lives at home and has next-door neighbor caregivers.. Patient does not want to be here.. Patient wants to go home. Also she denies any cough but EMS reports the patient does have cough. Patient appears to have some dementia characteristics. Patient is a very poor historian. She does not know the name of her medications. The medicine list was found in the nearby room according to EMS reports as told the nurse.. Patient advises she has had a headache diffuse for least 3 weeks. She has not spoken to her doctor about this. TRAVEL OUTSIDE OF THE [place] IN LAST 30 DAYS: No - Related Data Allergies/Adverse Reactions: No Known Allergies Allergy (Verified 09/28/19 09:45) Past Medical History - General Information source: Patient, Emergency Med Personnel - Social History Smoking Status: Unknown if Ever Smoked Cigarette use (# per day): No Chew tobacco use (# tins/day): No Smoking Education Provided: No Frequency of alcohol use: None Drug Abuse: None Family History: Malignancy Patient has suicidal ideation: No Patient has homicidal ideation: No - Past Medical History Cardiac Medical History: Reports: Hx Hypertension - ATENOLOL Denies: Hx Heart Attack Pulmonary Medical History: Denies: Hx Asthma Neurological Medical History: Denies: Hx Cerebrovascular Accident, Hx Seizures Endocrine Medical History: Reports: Hx Hypothyroidism. Denies: Hx Diabetes Mellitus Type 2 Malignancy Medical History: Reports: Hx Breast Cancer GI Medical History: Denies: Hx Hepatitis, Hx Hiatal Hernia, Hx Ulcer Skin Medical History: Denies Hx Eczema, Denies Hx Psoriasis Infectious Medical History: Denies: Hx Hepatitis Past Surgical History: Reports: Hx Herniorrhaphy - Incisional hernia at the site of the tissue harvest for the breast reconstr, Hx Hysterectomy, Hx Mastectomy - DOUBLE with subsequent breast reconstruction, Other - Cataracts. Denies: Hx Open Heart Surgery, Hx Pacemaker Physical Exam - Vital signs Vitals: Temp 98.5 F 09/28/19 09:21 Course - Vital Signs Vital signs: Temp Pulse Resp BP Pulse Ox 98.5 F 63 16 124/90 H 99 09/28/19 09:33 09/28/19 09:33 09/28/19 09:33 09/28/19 09:33 09/28/19 09:33 - Laboratory Result Diagrams: 09/28/19 08:30 09/28/19 08:30 Laboratory results interpreted by me: 09/28/19 09/28/19 08:30 08:30 RDW 14.1 H Lymph % (Auto) 12.2 L Sodium 127.0 L Chloride 93 L Glucose 116 H Discharge - Discharge Clinical Impression: Hyponatremia Headache Qualifiers: Headache type: unspecified Headache chronicity pattern: acute headache Intractability: not intractable Qualified Code(s): R51 - Headache Condition: Good Disposition: HOME, SELF-CARE Additional Instructions: Follow-up with personal doctor about your acute on chronic headache and take medicines as directed encourage fluids and sleep in dark room while taking headache medicines. Do not attempt to drive or ambulate or use dangerous machinery's. Try to eat saltine crackers for the next 4 to 5 days with your meal in order to increase your sodium.. Your test for sodium was low today. Prescriptions: Cyproheptadine HCl [Periactin 4 Mg Tablet] 4 mg PO HSP PRN 20 Days #20 tablet PRN Reason: Acyclovir [Zovirax 200 mg Capsule] 200 mg PO TID 7 Days #21 capsule
[2019-09-28 09:58] LABS: ABSOLUTE EOSINOPHILS # (AUTO) 0.1 10^3/uL (0.0-0.6); ABSOLUTE LYMPHOCYTES (AUTO) 1.1 10^3/uL (0.5-4.7); ABSOLUTE MONOCYTES (AUTO) 0.9 10^3/uL (0.1-1.4); ABSOLUTE NEUT (AUTO) 6.6 10^3/uL (1.7-8.2); BASOPHILS % (AUTO) 0.3 % (0-2); HEMATOCRIT 42.1 % (36.0-47.0); HEMOGLOBIN 14.6 g/dL (12.0-15.5); LYMPHOCYTES % (AUTO) 12.2 % (13-45); MEAN CORPUSCULAR HEMOGLOBIN 30.7 pg (27.0-33.4); MEAN CORPUSCULAR HGB CONC 34.6 g/dL (32.0-36.0); MEAN CORPUSCULAR VOLUME 89 fl (80-97); MONOCYTES % (AUTO) 10.1 % (3-13); PLATELET COUNT 266 10^3/uL (150-450); RED BLOOD COUNT 4.74 10^6/uL (3.72-5.28); RED CELL DISTRIBUTION WIDTH 14.1 % (11.5-14.0); SEGMENTED NEUTROPHILS % (AUTO) 76.4 % (42-78); TOTAL CELLS COUNTED % (AUTO) 100 %; WHITE BLOOD COUNT 8.7 10^3/uL (4.0-10.5)
[2019-09-28 09:59] LABS: ALBUMIN 4.1 g/dL (3.5-5.0); ALKALINE PHOSPHATASE 84 U/L (38-126); ANION GAP 9 (5-19); ASPARTATE AMINO TRANSFERASE 29 U/L (14-36); BILIRUBIN,TOTAL 1.2 mg/dL (0.2-1.3); BLOOD UREA NITROGEN 12 mg/dL (7-20); CARBON DIOXIDE 25 mmol/L (22-30); CHLORIDE 93 mmol/L (98-107); GLUCOSE 116 mg/dL (75-110); POTASSIUM 4.6 mmol/L (3.6-5.0); TOTAL PROTEIN 7.5 g/dL (6.3-8.2)
[2019-09-28 10:11] LABS: APPEARANCE,URINE CLEAR; BILIRUBIN,URINE NEGATIVE (NEGATIVE); COLOR,URINE YELLOW; GLUCOSE, URINE NEGATIVE (NEGATIVE); KETONES,URINE NEGATIVE (NEGATIVE); LEUKOCYTE ESTERASE,URINE NEGATIVE (NEGATIVE); NITRITE,URINE NEGATIVE (NEGATIVE); PROTEIN,URINE NEGATIVE (NEGATIVE); URINE SPECIFIC GRAVITY 1.009; UROBILINOGEN,URINE NEGATIVE mg/dL (<2.0)
--- NOTE | 2019-09-28 10:14 | RADIOLOGY REPORT (SQ) ---
EXAM DESCRIPTION: CT HEAD WITHOUT IMAGES COMPLETED DATE/TIME: 09/28/2019 10:04 am REASON FOR STUDY: headache COMPARISON: 09/10/2019 TECHNIQUE: Axial images acquired through the brain without intravenous contrast. Images reviewed wi th bone, brain and subdural windows. Additional sagittal and coronal reconstructions were generated. Images stored on PACS. All CT scanners at this facility use dose modulation, iterative reconstruction, and/or weight based d osing when appropriate to reduce radiation dose to as low as reasonably achievable (ALARA). [facility]: Dose Right [facility]: CareDose [facility]: Dose Right [facility]: Teradose 4D [facility]: [employer] RADIATION DOSE: CT Rad equipment meets quality standard of care and radiation dose reduction techniq ues were employed. CTDIvol: 53.2 mGy. DLP: 1017 mGy-cm.mGy. LIMITATIONS: None. FINDINGS: VENTRICLES: Prominent. CEREBRUM: No masses. No hemorrhage. No midline shift. Areas of low density in the white matter mos t likely due to chronic micro-vascular ischemic change. No evidence for acute infarction. Old left parietal infarct is again noted. CEREBELLUM: No masses. No hemorrhage. No alteration of density. No evidence for acute infarction. EXTRAAXIAL SPACES: Age-related involutional change. No fluid collections. No masses. ORBITS AND GLOBE: No intra- or extraconal masses. Normal contour of globe without masses. CALVARIUM: No fracture. PARANASAL SINUSES: No fluid or mucosal thickening. SOFT TISSUES: No mass or hematoma. OTHER: No other significant finding. IMPRESSION: CHRONIC CHANGES OF ATROPHY AND MICROVASCULAR ISCHEMIA. NO ACUTE PROCESS. EVIDENCE OF ACUTE STROKE: NO. TECHNICAL DOCUMENTATION: JOB ID: [id number] Quality ID # [id number]: Final reports with documentation of one or more dose reduction techniques (e.g., Au tomated exposure control, adjustment of the mA and/or kV according to patient size, use of iterative reconstruction technique) 2010 [employer]- All Rights Reserved Reading location - IP/workstation name: [email or web address]
--- NOTE | 2019-09-28 10:15 | RADIOLOGY REPORT (SQ) ---
EXAM DESCRIPTION: CHEST 2 VIEWS IMAGES COMPLETED DATE/TIME: 09/28/2019 10:06 am REASON FOR STUDY: cough COMPARISON: 07/25/2019 EXAM PARAMETERS: NUMBER OF VIEWS: two views TECHNIQUE: Digital Frontal and Lateral radiographic views of the chest acquired. RADIATION DOSE: NA LIMITATIONS: none FINDINGS: LUNGS AND PLEURA: No opacities, masses or pneumothorax. No pleural effusion. MEDIASTINUM AND HILAR STRUCTURES: No masses or contour abnormalities. HEART AND VASCULAR STRUCTURES: Heart normal size. No evidence for failure. BONES: There are chronic left-sided rib fractures. HARDWARE: Surgical clips overlying the right axilla and right lower chest wall. OTHER: No other significant finding. IMPRESSION: NO ACUTE RADIOGRAPHIC FINDING IN THE CHEST. TECHNICAL DOCUMENTATION: JOB ID: [id number] 2010 [employer]- All Rights Reserved Reading location - IP/workstation name: [email or web address]
[2019-09-28] MEDS ORDERED: KETOROLAC TROMETHAMINE INJ/PF 30 MG/1 ML SDV IM ONE (10:53)
[2019-09-28 12:05] VITALS: BP 150/48
== END 2019-09-28 11:16 | disposition home or self-care (01) ==
LOC: ER 09:12
DX: E87.1 Hypo-osmolality and hyponatremia (principal); R51 Headache; I10 Essential (primary) hypertension
CPT/HCPCS: 99284; 96372; 36415; 84443; 85025; 80053; 81001; 71046; 70450; J1885